=== PATIENT | female | born 1985 | race Caucasian/White ===

== ENCOUNTER 2021-01-18 12:53 | Emergency (ER) | payer BC ==
[2021-01-18] MEDS ORDERED: predniSONE 20 MG Tab PO ONE (13:26)
--- NOTE | 2021-01-18 13:29 | EDM.PDOC ---
ED HPI GENERAL MEDICAL PROBLEM - General Chief Complaint: ENT Problem Stated Complaint: LEFT EAR PAIN SWELLING/RIGHT EAR LIGHT PAIN Time Seen by Provider: 01/18/21 12:55 Source of Information: Reports: Patient History Limitations: Reports: No Limitations - History of Present Illness INITIAL COMMENTS - FREE TEXT/NARRATIVE: HISTORY AND PHYSICAL: History of present illness: The patient is a 35-year-old female who presents to the emergency room with complaints of bilateral ear swelling after using Neomycin, polymyxin B, and hydrocortisone combination ear drops that was prescribed on Tuesday for otitis externa bilaterally. She noticed increased itching and swelling by Tuesday and stopped the drops. Today she the swelling has not resolved, although the itching is somewhat better. The patient is concerned. Patient denies any shortness of breath or periorbital edema or any tongue swelling. Patient has not noticed any hives or itching other than her ears. Review of systems: As per history of present illness and below otherwise all systems reviewed and negative. Past medical history: As per history of present illness and as reviewed below otherwise noncontribut ory. Surgical history: As per history of present illness and as reviewed below otherwise noncontributory. Social history: See social history for further information Family history: As per history of present illness and as reviewed below otherwise noncontributory. Physical exam: General: Well developed and well nourished. Alert and orientated x 3. Nontoxic in appearance and in no acute distress. Vital signs are stable and have been reviewed by me. Nursing notes were reviewed. HEENT: Atraumatic, normocephalic, pupils equal and reactive bilaterally, negative for conjunctival pallor or scleral icterus, mucous membranes moist, TMs normal bilaterally, lateral earlobes swollen and ear canals slightly swollen. Still easily visualize TMs. Throat clear, neck supple, nontender, trachea midl ine. No drooling or trismus noted. No meningeal signs. No hot potato voice noted. Lungs: Clear to auscultation bilaterally. No wheezes, rales, or rhonchi. Chest nontender. Normal work of breathing, no accessory muscles used. Heart: S1S2, regular rate and rhythm without overt murmur, gallops, or rubs. No JVD. No peripheral edema Abdomen: Soft, nondistended, nontender. Normoactive bowel sounds. Negative for masses or costovertebral tenderness. Skin: Intact, warm, dry. No lesions or rashes noted. Hematologic: No petechiae or purpra. Mucosa appropriate color and normal nail bed color and refill. Extremities: Atraumatic, moves all extremities per self without difficulty or deficits, negative for cords or calf pain. Neurovascular unremarkable. Neuro: Awake, alert, oriented. Cranial nerves II through XII unremarkable. Cerebellum unremarkable. Motor and sensory unremarkable throughout. Exam nonfocal. Psychiatric: Mood and affect are appropriate. Normal thought process. Answering questions appropriately. Notes: *This patient was seen and evaluated during the 2019 SARS-CoV-2 novel coronavirus pandemic period. Community viral transmission is ongoing at time of this encounter and the emergency department is operating under pandemic response procedures. As stated above the patient is a 35-year-old female who presents to the emergency department with increased swelling after stopping her neomycin and polymyxin B/hydrocortisone drops on Tuesday. The patient had stated that she had went for bilateral ear irritation Tuesday and by Tuesday after taking the drops she had itching in her ears. And noticed some increased swelling. Patient stopped taking the eardrops however she still has some swelling. As it looks like the patient still has otitis externa and some swelling of her earlobes along with swelling in front of her tragus, will start her on prednisone 40 mg p.o. daily for 4 days and Cipro dexamethasone eardrops to both ears 4 drops twice a day for [address] Hunter consult on the case. I have talked with the patient about today's findings, in addition to providing specific details for plan of care. Reassessment at the time of disposition demonstrates that the patient is in no acute distress. The patient is stable for discharge, counseling was provided and we discussed in great detail signs and symptoms that would prompt them to return to the Emergency Department. Medication, follow up and supportive care measures were reviewed and discussed. Voices understanding and is agreeable to plan of care. Denies any further questions or concerns at this time. Therapeutics: Prednisone 40 mg Prescription:prednisone 40 mg p.o. daily for 4 days and Cipro dexamethasone eardrops to both ears 4 drops twice a day for 7 days Impression: Allergic reaction/bilateral otitis externa Plan: 1. You were evaluated today on an emergent basis. Your pains of bilateral ear swelling after taking your Neomycin, polymyxin B, and hydrocortisone combination ear drops was evaluated and found to be in reaction. I have added neomycin and polymyxin B to your allergy list. I have treated your reaction with 1 dose of steroids in the emergency department. I have sent prednisone 40 mg p.o. daily for 4 days and Cipro dexamethasone eardrops to both ears 4 drops twice a day for 7 days to and pharmacy. You can pick this up tomorrow. As we talked about please do follow-up with your primary care provider once done with the steroids for the week after to ensure there are no difficulties with the ears. 2. You can alternate Tylenol and ibuprofen as needed for pain and fever management. 3. We encourage you to follow up with your primary care provider and/or recommended specialist in the next few days for re-evaluation and further care/management. 4. If your symptoms should worsen, new symptoms develop or any of the signs and symptoms we discussed should arise please return to the emergency room or call 911 (if needed). Definitive disposition and diagnosis as appropriate pending reevaluation and review of above. - Related Data Allergies Allergy/AdvReac Type Severity Reaction Status Date / Time neomycin Allergy Swelling Verified 01/18/21 13:30 polymyxin B Allergy Swelling Verified 01/18/21 13:30 Home Meds: Home Meds Ciprofloxacin HCl/Dexameth [Ciproflox-Dexameth Otic Susp] 7.5 ml OT BID 7 Days #4 drops.susp 01/18/21 [Rx] Hydrocort/Neomycin/Polymyxin B [Cortisporin Otic Susp] 1 % EARBOTH QID 01/18/21 [History] predniSONE 40 mg PO DAILY 4 Days #8 tab 01/18/21 [Rx] Past Medical History - Past Health History Medical/Surgical History: Denies Medical/Surgical History - Infectious Disease History Infectious Disease History: Reports: Chicken Pox Social & Family History - Family History Family Medical History: No Pertinent Family History - Tobacco Use Tobacco Use Status *Q: Never Tobacco User Second Hand Smoke Exposure: No - Caffeine Use Caffeine Use: Reports: Coffee - Recreational Drug Use Recreational Drug Use: No ED ROS ENT - Review of Systems Review Of Systems: Comprehensive ROS is negative, except as noted in HPI. ED EXAM, ENT - Physical Exam Exam: See Below (See dictation) Course - Vital Signs Last Recorded V/S: Last Vital Signs Temp 97.5 F 01/18/21 13:48 Pulse 72 11/28/21 13:48 Resp 16 01/18/21 13:48 BP 111/67 01/18/21 13:48 Pulse Ox 98 01/18/21 13:48 - Orders/Labs/Meds Meds: Medications Discontinued Medications Generic Name Dose Route Start Last Admin Trade Name Diana PRN Reason Stop Dose Admin Prednisone 40 mg 01/18/21 13:26 01/18/21 13:39 Prednisone 20 Mg Tab PO 01/18/21 13:27 40 mg ONETIME ONE Administration Departure - Departure Time of Disposition: 13:32 Disposition: Home, Self-Care 01 Condition: Good Clinical Impression: Allergic reaction - Discharge Information *PRESCRIPTION DRUG MONITORING PROGRAM REVIEWED*: Not Applicable *COPY OF PRESCRIPTION DRUG MONITORING REPORT IN PATIENT VILMA: Not Applicable Prescriptions: Ciprofloxacin HCl/Dexameth [Ciproflox-Dexameth Otic Susp] 7.5 ml OT BID 7 Days #4 drops.susp predniSONE 40 mg PO DAILY 4 Days #8 tab Instructions: Allergies, Adult, [id number] Referrals: Cassie Johnson DO [Primary Care Provider] - Forms: ED Department Discharge Additional Instructions: The following information is given to patients seen in the emergency department who are being discharged to home. This information is to outline your options for follow-up care. We provide all patients seen in our emergency department with a follow-up referral. The need for follow-up, as well as the timing and circumstances, are variable depending upon the specifics of your emergency department visit. If you don't have a primary care physician on staff, we will provide you with a referral. We always advise you to contact your personal physician following an emergency department visit to inform them of the circumstance of the visit and for follow-up with them and/or the need for any referrals to a consulting specialist. The emergency department will also refer you to a specialist when appropriate. This referral assures that you have the opportunity for follow-up care with a specialist. All of these measure are taken in an effort to provide you with optimal care, which includes your follow-up. Under all circumstances we always encourage you to contact your private physician who remains a resource for coordinating your care. When calling for follow-up care, please make the office aware that this follow-up is from your recent emergency room visit. If for any reason you are refused follow-up, please contact the Emergency Department at and asked to speak to the emergency department charge nurse. Tatiana Henson [facility] [address] [place] [address] [facility] [address] [place] [address] Plan: 1. You were evaluated today on an emergent basis. Your pains of bilateral ear swelling after taking your Neomycin, polymyxin B, and hydrocortisone combination ear drops was evaluated and found to be in reaction. I have added neomycin and polymyxin B to your allergy list. I have treated your reaction with 1 dose of steroids in the emergency department. I have sent prednisone 40 mg p.o. daily for 4 days and Cipro dexamethasone eardrops to both ears 4 drops twice a day for 7 days to and [facility] pharmacy. You can pick this up tomorrow. As we talked about please do follow-up with your primary care provider once done with the steroids for the week after to ensure there are no difficulties with the ears. 2. You can alternate Tylenol and ibuprofen as needed for pain and fever management. 3. We encourage you to follow up with your primary care provider and/or recommended specialist in the next few days for re-evaluation and further care/management. 4. If your symptoms should worsen, new symptoms develop or any of the signs and symptoms we discussed should arise please return to the emergency room or call 911 (if needed). Sepsis Event Note (ED) - Evaluation Sepsis Screening Result: No Definite Risk - Focused Exam Vital Signs: Vital Signs Temp Pulse Resp BP Pulse Ox 01/18/21 13:48 97.5 F 72 16 111/67 98 01/18/21 13:03 97.2 F 80 16 142/78 H 96
[2021-01-18] MEDS ORDERED: Ciprofloxacin/Dexamethasone 0.3-0.1% Otic Susp 7.5 ML Bottle EARBOTH SCH (13:45)
== END 2021-01-18 13:52 | disposition home or self-care (01) ==
LOC: MW.ED 12:53
DX: H93.8X3 Other specified disorders of ear, bilateral (principal); T36.5X5A Adverse effect of aminoglycosides, initial encounter; T36.8X5A Adverse effect of other systemic antibiotics, initial encounter; T38.0X5A Adverse effect of glucocorticoids and synthetic analogues, initial encounter; Z88.1 Allergy status to other antibiotic agents
CPT/HCPCS: 99282; A9270